=== PATIENT | female | born 1945 | race Caucasian/White ===

== ENCOUNTER 2019-04-01 09:12 | Emergency (ER) | payer MEDICARE, BC ==
[2019-04-01 09:37] VITALS: BP 149/59
[2019-04-01] MEDS ORDERED: Cephalexin CAP* 500 MG PO ONE (10:01)
--- NOTE | 2019-04-01 10:06 | UC ---
Complaint Female HPI - HPI Summary HPI Summary: 73 yo female with a 2 day hx of dysuria/urgency /frquency no fever/chills no back pain has taken cipro twice for UTIs since Nov of this year - History Of Current Complaint Chief Complaint: UCGU Stated Complaint: UTI SYMPTOMS Time Seen by Provider: 04/01/19 09:25 Hx Obtained From: Patient Onset/Duration: Gradual Onset, Lasting Days Timing: Intermittent Severity Initially: Mild Severity Currently: None Pain Intensity: 0 Pain Scale Used: 0-10 Numeric Character: Burning Aggravating Factor(s): Urination Associated Signs And Symptoms: Positive: Negative Related Hx: Similar Episode/Dx as: - UTI - Allergies/Home Medications Allergies/Adverse Reactions: Allergies Allergy/AdvReac Type Severity Reaction Status Date / Time No Known Allergies Allergy Verified 04/01/19 09:27 Home Medications: Home Medications Acetaminophen [Mapap] 2,000 mg PO ONCE 04/01/19 [History Confirmed 04/01/19] Betamethasone Valerate 1 applic TOPICAL DAILY 04/01/19 [History Confirmed ] Levothyroxine TAB* [Synthroid 88 MCG TAB*] 1 tab PO DAILY 04/01/19 [History Confirmed 04/01/19] Rosuvastatin Calcium [Crestor] 10 mg PO DAILY 04/01/19 [History Confirmed ] Uricom 2 tab PO ONCE 04/01/19 [History] Uvafem 1 tab VAGINAL WEEKLY 04/01/19 [History] PMH/Surg Hx/FS Hx/Imm Hx Previously Healthy: Yes Endocrine History: Thyroid Disease, Dyslipidemia - Surgical History Surgical History: Yes Surgery Procedure, Year, and Place: Lumpectomy, Lymph Node, Appy, T/A - Family History Known Family History: Positive: Hypertension - Social History Alcohol Use: None Substance Use Type: None Smoking Status (MU): Never Smoked Tobacco Review of Systems All Other Systems Reviewed And Are Negative: Yes Constitutional: Positive: Negative Skin: Positive: Negative Eyes: Positive: Negative ENT: Positive: Negative Respiratory: Positive: Negative Cardiovascular: Positive: Negative Gastrointestinal: Positive: Negative Genitourinary: Positive: Dysuria, Frequency, Urgency Motor: Positive: Negative Neurovascular: Positive: Negative Musculoskeletal: Positive: Negative Neurological: Positive: Negative Psychological: Positive: Negative Physical Exam Vital Signs: Initial Vital Signs Temp 97.3 F 04/01/19 09:31 Pulse 68 04/01/19 09:31 Resp 18 04/01/19 09:31 BP 149/59 04/01/19 09:31 Pulse Ox 100 04/01/19 09:31 Complaint Female Dx - Course Course Of Treatment: UA not done- took AZO - Differential Dx/Diagnosis Provider Diagnosis: Dysuria Discharge - Sign-Out/Discharge Documenting (check all that apply): Patient Departure All imaging exams completed and their final reports reviewed: No Studies - Discharge Plan Condition: Stable Disposition: HOME Prescriptions: Cephalexin CAP* [Keflex CAP*] 500 mg PO BID #10 cap Patient Education Materials: Dysuria (ED) Additional Instructions: a urine culture is pending I suggest you get recheck in 2-3 days if not better - Billing Disposition and Condition Condition: STABLE Disposition: Home
--- NOTE | 2019-04-03 06:55 | UC ---
- Progress Note Progress Note: please notify patient no UTI stop antibiotic recheck for persistent symptoms Course/Dx - Diagnoses Provider Diagnoses: Dysuria Discharge - Sign-Out/Discharge Documenting (check all that apply): Post-Discharge Follow Up All imaging exams completed and their final reports reviewed: No Studies - Discharge Plan Condition: Stable Disposition: HOME Prescriptions: Cephalexin CAP* [Keflex CAP*] 500 mg PO BID #10 cap Patient Education Materials: Dysuria (ED) Referrals: No Primary Care Phys,NOPCP [Primary Care Provider] - Additional Instructions: a urine culture is pending I suggest you get recheck in 2-3 days if not better - Billing Disposition and Condition Condition: STABLE Disposition: Home
== END 2019-04-01 10:28 | disposition home or self-care (01) ==
LOC: UCCORT 09:12
DX: R30.0 Dysuria (principal); E07.9 Disorder of thyroid, unspecified; E78.5 Hyperlipidemia, unspecified; Z79.890 Hormone replacement therapy; Z79.899 Other long term (current) drug therapy
CPT/HCPCS: 87086; 99202; A9270-GY; G0463